=== PATIENT | male | born 1995 | race American Indian/Alaskan Native ===

== ENCOUNTER 2019-10-25 17:41 | Emergency (ER) | payer SELFPAY ==
--- NOTE | 2019-10-25 19:09 | Emergency Department Report ---
Chief Complaint: Abdominal Pain Stated Complaint: CONSTIPATION Time Seen by Provider: 10/25/19 18:56 - HPI History of Present Illness: Patient is a 24-year-old male presents emergency room with complaints of chronic constipation for 5 years. He states that he has had increased constipation over the last 2 weeks. He states he is still able to have bowel movements but is just very small amounts. He states that he only has had one episode of vomiting during these 2 weeks. He is able to tolerate p.o. intake without difficulty. He states that he took Dulcolax and milk of magnesia with some relief. He has never seen a GI doctor before. He denies any allergies to medications. He states that he did call off work and needs an excuse for work. VSS on exam: Non toxic appearing, no acute distress atraumatic, normocephalic normal appearance of the eyes, PERRL, EOMI, no periorbital edema or ecchymosis moist mucus membranes regular heart rate and rhythm, no gallops, no rubs, no murmurs no abd ttp, no guarding, no rebound, no rigidity, normal bowel sounds, no peritoneal signs, negative murphys sign, negative mcburneys point tenderness breath sounds are clear bilaterally, no w/r/r A&O x4, no focal neuro deficit skin is warm, dry, intact Patient does not have any obstructive signs No abdominal tenderness on exam, normal bowel sounds in all 4 quadrants He states he is still able to have small bowel movements He is tolerating p.o. intake without difficulty he is not having daily n/v Discussed ijsg-vff-jjjftiz treatments with patient such as enema and MiraLAX advised pt Please increase water intake. Please increase fiber intake. Use MiraLAX [id number]. Use an enema [id number]-[id number]. Follow-up with a primary care doctor. Follow-up with a GI doctor. Return to the emergency room for any new or worsening symptoms. Medical screening examination performed and there is no threat to life or limb at this time - Exam Vital Signs: Vital Signs 10/25/19 17:53 Temperature 98.2 F Pulse Rate 59 L Respiratory 16 Rate Blood Pressure 109/67 O2 Sat by Pulse 100 Oximetry MSE screening note: Focused history and physical exam performed. ED Disposition for MSE Clinical Impression: Constipation Qualifiers: Constipation type: unspecified constipation type Qualified Code(s): K59.00 - Constipation, unspecified Disposition: MED SCREENING EXAM-LEFT Is pt being admited?: No Does the pt Need Aspirin: No Condition: Stable Instructions: Constipation (ED), High Fiber Diet (ED) Additional Instructions: Please increase water intake. Please increase fiber intake. Use MiraLAX [id number]. Use an enema [id number]. Follow-up with a primary care doctor. Follow-up with a GI doctor. Return to the emergency room for any new or worsening symptoms. Referrals: PRISCILA MCDONALD MD [Staff Physician] - 2-[address] [facility] [Outside] - 2-3 Days [facility] [Provider Group] - 2-3 Days [facility] [Outside] - 2-3 Days [facility] [Provider Group] - 2-3 Days Forms: Work/School Release Form(ED) Time of Disposition: 19:07 Print Language: SOMALI
[2019-10-25 20:31] VITALS: BP 113/62
== END 2019-10-25 19:30 | disposition left against medical advice (07) ==
LOC: ED 17:41
DX: K59.00 Constipation, unspecified (principal); R11.10 Vomiting, unspecified
CPT/HCPCS: 99282